=== PATIENT | female | born 1970 | race Caucasian/White ===

== ENCOUNTER 2017-05-05 09:38 | Emergency (ER) | payer BC ==
[2017-05-05] MEDS ORDERED: Morphine Sulfate 2 MG/ML SYRINGE ONE (09:51)
[2017-05-05] MEDS ORDERED: Ondansetron HCl/PF 4 MG/2 ML Vial ONE (09:52)
[2017-05-05] MEDS ORDERED: diphenhydrAMINE HCl 50 MG/ML 1 ML VIAL ONE (09:52)
[2017-05-05] MEDS ORDERED: Ketorolac Tromethamine 30 MG/ML VIAL ONE (09:52)
[2017-05-05 10:05] LABS: Bilirubin Negative (Negative); Blood, Urine Large (Negative); Glucose, Urine (Dipstick) Negative (Negative); Leukocyte Negative (Negative); Nitrite Negative (Negative); Protein, Urine (Dipstick) Negative (Neg-Trace); Specific Gravity, Urine 1.025 (1.005-1.030); Urobilinogen 0.2 mg/dL (0.2-1.0)
[2017-05-05 10:08] LABS: Clarity Slightly Cloudy (Clear)
[2017-05-05 10:14] LABS: Bacteria/HPF 2+ HPF (None Seen); Crystals/HPF None Seen HPF (Negative); Hyaline Casts/LPF NONE SEEN LPF (0-3 Hyaline); Other Casts/LPF None Seen LPF (0-3 Hyaline); Oval Fat Bodies/HPF None Seen HPF (None Seen); RBC/HPF 21-50 HPF (0-3); Renal Epithelial None Seen HPF (0-3); Sperm/HPF None Seen HPF (None Seen); Transitional Epithelial NONE SEEN HPF (0-3); Trichomonas/HPF None Seen HPF (None Seen); WBC/HPF 0-3 HPF (0-3); Yeast-All Forms None Seen HPF (None Seen)
[2017-05-05 10:16] LABS: Pregu Control Background? CLEAR/WHITE (CLR/WHITE); Pregu Control Bar Appear? YES (CONTROL BAR); Specific Gravity 1.025 (1.002-1.036)
[2017-05-05 10:18] LABS: Pregnancy Test - Urine (BHCG) Negative (Negative)
[2017-05-05] MEDS ORDERED: Tamsulosin HCl 0.4 MG CAP PO SCH (11:45)
--- NOTE | 2017-05-05 15:55 | CT ---
CT OF THE ABDOMEN AND PELVIS WITHOUT CONTRAST 05/05/[address] of the abdomen and pelvis was performed for evaluation of right flank pain and hematuria. Axial slices were acquired throughout oral or IV contrast followed by coronal and sagittal reconstru ctions. There is mild right hydronephrosis and slight dilatation of the left ureter. A large calcification i n the pelvis on the left is not clearly in the ureter and I do not feel it is associated with it. Th ere is a second 5 mm calcification low in the pelvis on the left side that might be in the ureter. I see no stones in the urinary bladder. There is at least one nonobstructing calculus in the left kid peggy. Given some very mild left hydronephrosis and slight dilatation of the left ureter, my presumpti on is the 5 mm lower pelvic calcification on the left may either be a distal ureteral calculus (thou gh it is difficult to absolutely prove it is in the ureter) or the patient recently passed a stone. She obviously has at least one more calculus remaining in the left kidney. The right kidney shows no mass or hydronephrosis. No large renal calculi are seen. The lung bases are clear. The liver, spleen, pancreas, adrenal glands, and abdominal aorta were unre markable within the limitations of a noncontrast study. The bowel is nondistended with no sign of bowel wall thickening, inflammatory changes, or obstructio n. No free air or free fluid was seen. CT of the pelvis shows a 1.5 cm well defined rounded cystic structure in the left adnexal region. I presume that this is a small ovarian cyst. No free fluid is present. There are no inflammatory ford es. IMPRESSION: Very mild left hydronephrosis and slight dilatation of the left ureter. Suspicion for a 5 mm distal left ureteral calculus, though this is not proven by the scan. The other alternative explanation is a recently passed calculus. The patient's left sided pain, hematuria, and slight dilatation all poin t to one of these two diagnoses. POS: HOME
== END 2017-05-05 11:20 | disposition home or self-care (01) ==
LOC: BURERS 09:38
DX: N13.2 Hydronephrosis with renal and ureteral calculous obstruction (principal); K58.9 Irritable bowel syndrome, unspecified; F41.9 Anxiety disorder, unspecified; Z79.899 Other long term (current) drug therapy
CPT/HCPCS: 74176; 81003; 81015; 81025; 94760; 96374; 96375; J1200; J1885; J2270; J2405